=== PATIENT | male | born 1975 | race Caucasian/White ===

== ENCOUNTER 2020-12-24 12:28 | Emergency (ER) | payer OTHER ==
[2020-12-24] MEDS ORDERED: Sodium Chloride 0.9% 10 ML Syringe FLUSH PRN (12:46)
[2020-12-24] MEDS ORDERED: Sodium Chloride 0.9% 2.5 ML Syringe FLUSH PRN (12:46)
[2020-12-24] MEDS ORDERED: Ketorolac 30 MG/ML SDV IVPUSH ONE (12:46)
--- NOTE | 2020-12-24 12:56 | EDM.PDOC ---
ED HPI GENERAL MEDICAL PROBLEM - General Chief Complaint: Chest Pain Stated Complaint: CHEST PAIN Time Seen by Provider: 12/24/20 12:32 - History of Present Illness INITIAL COMMENTS - FREE TEXT/NARRATIVE: HISTORY AND PHYSICAL: History of present illness: This is a 45-year-old gentleman with no history significant for hypertension, diabetes, liver, lung, kidney, cholesterol, tobacco, family history CAD, inactivity, prior CAD, history of A. fib x1 and is currently not on any medication for it, who presents ER today complaining of left-sided sharp chest pain x1 week that started when he awoke from sleep and has been there pe rsistently. Patient reports that the pain increases with deep inspiration as well as movement of his left arm. Patient reports no change with exertion and no relief with rest. Patient denies any diaphoresis, shortness of breath, pain rating down his left arm jaw or back, nausea, vomiting. Patient reports that the pain is localized over his left chest. Review of systems: As per history of present illness and below otherwise all systems reviewed and negative. Past medical history: As per history of present illness and as reviewed below otherwise noncontributory. Surgical history: As per history of present illness and as reviewed below otherwise noncontributory. Social history: No reported history of drug abuse. Family history: As per history of present illness and as reviewed below otherwise noncontributory. Physical exam: This patient was seen and evaluated during the 2019 SARS-CoV-2 novel coronavirus pandemic period. Community viral transmission is ongoing at time of this encounter and the emergency department is operating under pandemic response procedures. Constitutional: Patient is oriented to person, place, and time. Appears well- developed and well-nourished. No distress. HEENT: Moist mucous membranes Head: Normocephalic and atraumatic Eyes: Right eye exhibits no discharge. Left eye exhibits no discharge. No scleral icterus Neck: Normal range of motion. No tracheal deviation present. Cardiovascular: Normal rate and regular rhythm. Pulmonary: Effort normal, no respiratory distress. Abdominal: No distention Musculoskeletal: Normal range of motion Neurologic: Alert and oriented to person, place and time. Skin: [place], warm and dry. Psychiatric: Normal mood and affect. Behavior is normal. Judgment and thought content normal. Nursing note and vital signs have been reviewed Patient's ER physical exam is significant for reproducible pain and discomfort with deep inspiration and movement of his left arm. Diagnostics: EKG: As interpreted by ER physician: Rose: Nonspecific ST-T wave abnormalities Normal axis No evidence of ST elevation NV Normal sinus rhythm heart rate of 81 Patient's labs in ER been all normal. Patient's normal CBC, CMP, troponin, D- dimer. Chest Xray: Normal cardiac silhouette No infiltrates or effusions identified. No PTX No evidence of acute bony fracture. As interpreted by ER MD: [employer]: Toradol 30 mg IV Assessment and plan: This is a 45-year-old gentleman who presents ER today with nonspecific left- sided chest pain that appears to be mechanical in nature. Patient has a heart score of 1. Patient's labs are all within normal limits. Patient reports that he had significant improvement in his pain and discomfort after Toradol. Given his presentation, I feel that the patient at this time is stable for discharge to home with close follow-up with his primary care physician for further cardiac evaluation. Patient be discharged home with prescription for Naprosyn to see if that helps his pain over the next couple days. Reassessment at the time of disposition demonstrates that the patient is in no acute distress. The patient has remained stable throughout the entire ED visit and is without objective evidence for acute process requiring urgent intervention or hospitalization. The patient is stable for discharge, counseling is provided as documented above, discussed symptomatic treatment and specific conditions for return. I have spoken with the patient/caregiver and discussed todays findings, in addition to providing specific details for the plan of care. Questions are answered and there is agreement with the plan. Heart Score: History: 0 (2, Highly Suspicious; 1, Moderate Suspicious; 0: Slightly Suspicious) EK (2, Significant ST depression; 1: Non specific repolarization disturbance; 0, Normal) Age: 1 (2, = 65; 1: 45-65; 0, =45) Risk factors: 0 (2, =3 risk factors or history of atherosclerotic disease; 1, 1-2 risk factors; 0, no risk factors) Risk Factors include hypercholesterolemia, HTN, DM, smoking, family history, obesity Troponin: 0 (2, (=3x normal limit; 1, 1-3 x normal limit; 0 = normal limit) Total Heart Score: 1 Management Scores 0-3: 0.9-1.7% risk of adverse cardiac event. In the HEART Score study, these patients were discharged (0.99% in the retrospective study, 1.7% in the prospective study) Scores 4-6: 12-16.6% risk of adverse cardiac event. In the HEART Score study, these patients were admitted to the hospital. (11.6% retrospective, 16.6% prospective) Scores =7: 50-65% risk of adverse cardiac event. In the HEART Score study, these patients were candidates for early invasive measures. (65.2% retrospective, 50.1% prospective) Definitive disposition and diagnosis as appropriate pending reevaluation and re view of above. chest Pain Score (Numeric/FACES): 7 - Related Data Allergies Allergy/AdvReac Type Severity Reaction Status Date / Time No Known Allergies Allergy Verified 12/24/20 12:49 Home Meds: Home Meds Naproxen [Naprosyn] 500 mg PO BID #20 tablet 12/24/20 [Rx] Past Medical History Cardiovascular History: Reports: Afib Respiratory History: Reports: None Gastrointestinal History: Reports: None Genitourinary History: Reports: None Dermatologic History: Reports: Other (See Below) Other Dermatologic History: vitiligo - Infectious Disease History Infectious Disease History: Reports: None Social & Family History - Family History Family Medical History: No Pertinent Family History - Caffeine Use Caffeine Use: Reports: None - Recreational Drug Use Recreational Drug Use: No ED ROS GENERAL - Review of Systems Review Of Systems: See Below ED EXAM, GENERAL - Physical Exam Exam: See Below Course - Vital Signs Last Recorded V/S: Last Vital Signs Temp 97.0 F 12/24/20 12:40 Pulse 81 12/24/20 12:40 Resp 16 12/24/20 12:40 BP 122/83 12/24/20 12:40 Pulse Ox 96 12/24/20 12:40 - Orders/Labs/Meds Orders: Active Orders 24 hr Category Date Time Status Sodium Chloride 0.9% [Saline Flush] Med 12/24/20 12:46 Active 10 ml FLUSH ASDIRECTED PRN Sodium Chloride 0.9% [Saline Flush] Med 12/24/20 12:46 Active 2.5 ml FLUSH ASDIRECTED PRN Saline Lock Insert [OM.PC] Stat Oth 12/24/20 12:47 Ordered Medication Orders Sodium Chloride (Sodium Chloride 0.9% 10 Ml Syringe) 10 ml FLUSH ASDIRECTED PRN PRN Reason: Keep Vein Open Last Admin: 12/24/20 13:02 Dose: 10 ml Documented by: NIURKA Sodium Chloride (Sodium Chloride 0.9% 2.5 Ml Syringe) 2.5 ml FLUSH ASDIRECTED PRN PRN Reason: Keep Vein Open Last Admin: 12/24/20 13:02 Dose: 2.5 ml Documented by: NIURKA Labs: Laboratory Tests 12/24/20 12/24/20 12/24/20 Range/Units 13:00 13:00 13:00 WBC 5.74 (4.0-11.0) K/uL RBC 5.59 (4.50-5.90) M/uL Hgb 16.7 (13.0-17.0) g/dL Hct 47.4 (38.0-50.0) % MCV 84.8 (80.0-98.0) fL MCH 29.9 (27.0-32.0) pg MCHC 35.2 (31.0-37.0) g/dL RDW Std Deviation 39.7 (28.0-62.0) fl RDW Coeff of Jim 13 (11.0-15.0) % Plt Count 290 (150-400) K/uL MPV 8.90 (7.40-12.00) fL Neut % (Auto) 60.4 (48.0-80.0) % Lymph % (Auto) 26.7 (16.0-40.0) % [place] % (Auto) 8.5 (0.0-15.0) % Eos % (Auto) 3.7 (0.0-7.0) % Baso % (Auto) 0.7 (0.0-1.5) % Neut # (Auto) 3.5 (1.4-5.7) K/uL Lymph # (Auto) 1.5 (0.6-2.4) K/uL [place] # (Auto) 0.5 (0.0-0.8) K/uL Eos # (Auto) 0.2 (0.0-0.7) K/uL Baso # (Auto) 0.0 (0.0-0.1) K/uL Nucleated RBC % 0.0 /100WBC Nucleated RBCs # 0 K/uL D-Dimer, Quantitative < 0.19 (0.0-0.50) mg/L FEU Sodium 138 (136-148) mmol/L Potassium 4.0 (3.5-5.1) mmol/L Chloride 102 (98-107) mmol/L Carbon Dioxide 27.7 (21.0-32.0) mmol/L BUN 14 (7.0-18.0) mg/dL Creatinine 1.1 (0.8-1.3) mg/dL Est Cr Clr Drug Dosing 89.37 mL/min Estimated GFR (MDRD) > 60.0 ml/min Glucose 100 (74-106) mg/dL Calcium 8.7 (8.5-10.1) mg/dL Total Bilirubin 0.6 (0.2-1.0) mg/dL AST 18 (15-37) IU/L ALT 49 (14-63) IU/L Alkaline Phosphatase 110 (46-116) U/L Troponin I < 0.050 (0.000-0.056) ng/mL Total Protein 7.4 (6.4-8.2) g/dL Albumin 4.0 (3.4-5.0) g/dL Globulin 3.4 (2.6-4.0) g/dL Albumin/Globulin Ratio 1.2 (0.9-1.6) Meds: Medications Generic Name Dose Route Start Last Admin Trade Name Freq PRN Reason Stop Dose Admin Sodium Chloride 10 ml 12/24/20 12:46 12/24/20 13:02 Sodium Chloride 0.9% 10 Ml Syringe FLUSH 10 ml ASDIRECTED PRN Administration Keep Vein Open Sodium Chloride 2.5 ml 12/24/20 12:46 12/24/20 13:02 Sodium Chloride 0.9% 2.5 Ml Syringe FLUSH 2.5 ml ASDIRECTED PRN Administration Keep Vein Open Discontinued Medications Generic Name Dose Route Start Last Admin Trade Name Freq PRN Reason Stop Dose Admin Ketorolac Tromethamine 30 mg 12/24/20 12:46 12/24/20 13:02 Ketorolac 30 Mg/Ml Sdv IVPUSH 12/24/20 12:47 30 mg ONETIME ONE Administration Departure - Departure Time of Disposition: 14:05 Disposition: Home, Self-Care 01 Condition: Good Clinical Impression: Nonspecific chest pain - Discharge Information Instructions: Nonspecific Chest Pain, Adult Forms: ED Department Discharge Additional Instructions: You were seen and evaluated in the ER today secondary to pain that you are experiencing in the left side of your chest. The work-up that we performed in the emergency department was all normal. Your EKG, chest x-ray, heart enzymes, blood clot tests, all came back negative. You will be given a prescription for Naprosyn to see if that might help your pain and discomfort. Please make an appointment with your primary care physician in the next 1 to 2 days to be reevaluated and reassessed for possible cardiac consultation. Please return to the ER if you start experiencing any new, worsening, or concerning symptoms. The following information is given to patients seen in the emergency department who are being discharged to home. This information is to outline your options for follow-up care. We provide all patients seen in our emergency department with a follow-up referral. The need for follow-up, as well as the timing and circumstances, are variable depending upon the specifics of your emergency department visit. If you don't have a primary care physician on staff, we will provide you with a referral. We always advise you to contact your personal physician following an emergency department visit to inform them of the circumstance of the visit and for follow-up with them and/or the need for any referrals to a consulting specialist. The emergency department will also refer you to a specialist when appropriate. This referral assures that you have the opportunity for follow-up care with a specialist. All of these measure are taken in an effort to provide you with optimal care, which includes your follow-up. Under all circumstances we always encourage you to contact your private brenton bernardo who remains a resource for coordinating your care. When calling for follow-up care, please make the office aware that this follow-up is from your recent emergency room visit. If for any reason you are refused follow-up, please contact the [facility] Emergency Department at and asked to speak to the emergency department charge nurse. [facility] - [facility] [address] [place] [id number] [address] [id number] Sepsis Event Note (ED) - Evaluation Sepsis Screening Result: No Definite Risk - Focused Exam Vital Signs: Vital Signs Temp Pulse Resp BP Pulse Ox 12/24/20 12:40 97.0 F 81 16 122/83 96 - My Orders Last 24 Hours: My Active Orders 12/24/20 12:46 Sodium Chloride 0.9% [Saline Flush] 10 ml FLUSH ASDIRECTED PRN Sodium Chloride 0.9% [Saline Flush] 2.5 ml FLUSH ASDIRECTED PRN 12/24/20 12:47 Saline Lock Insert [OM.PC] Stat - Assessment/Plan Last 24 Hours: My Active Orders 12/24/20 12:46 Sodium Chloride 0.9% [Saline Flush] 10 ml FLUSH ASDIRECTED PRN Sodium Chloride 0.9% [Saline Flush] 2.5 ml FLUSH ASDIRECTED PRN 12/24/20 12:47 Saline Lock Insert [OM.PC] Stat
[2020-12-24 13:37] LABS: BLOOD UREA NITROGEN,BUN 14 mg/dL (7.0-18.0); CARBON DIOXIDE,CO2 27.7 mmol/L (21.0-32.0); CHLORIDE,CL 102 mmol/L (98-107); GLUCOSE RANDOM 100 mg/dL (74-106); SODIUM,NA 138 mmol/L (136-148)
--- NOTE | 2020-12-24 13:50 | CR ---
Indication: Chest pain Comparison: None available. Technique: Single AP view chest Findings: There is hyperinflation and chronic interstitial change. There is no focal consolidation, effusion, or pneumothorax. The cardiomediastinal silhouette is within normal limits. The bony thorax is grossly intact. Impression: Hyperinflation and chronic interstitial changes without evidence of dense consolidation. Dictated by Jose J Love MD @ 12/24/2020 1:49:[address] Jose J Love @ Dec 24 2020 1:49PM
== END 2020-12-24 14:45 | disposition home or self-care (01) ==
LOC: MW.ED 12:28
DX: R07.89 Other chest pain (principal)
CPT/HCPCS: 36415; 71045; 80053; 84484; 85025; 85379; 93005; 96374; 99285; J1885; 93010; 99283